=== PATIENT | female | born 1950 ===

== ENCOUNTER 2022-05-25 11:26 | Emergency (ER) | payer MEDICARE ==
[2022-05-25] MEDS ORDERED: SODIUM CHLORIDE 0.9% 1000 ML 1,000 ML IV ONE ×2 (13:02)
[2022-05-25] MEDS ORDERED: ACETAMINOPHEN 500 MG TAB PO ONE ×2 (13:02)
--- NOTE | 2022-05-25 13:35 | XRay Report ---
CHEST 1 VIEW 05/25/2022 1:08 PM INDICATION / CLINICAL INFORMATION: fever cough. COMPARISON: None available. FINDINGS: SUPPORT DEVICES: None. HEART / MEDIASTINUM: No significant abnormality. LUNGS / PLEURA: No significant pulmonary or pleural abnormality. No pneumothorax. ADDITIONAL FINDINGS: No significant additional findings. IMPRESSION: 1. No acute findings. Signer Name: Ady Argueta MD Signed: 05/25/2022 1:31 PM Workstation Name: [id number]
--- NOTE | 2022-05-25 13:56 | Emergency Department Report ---
HPI - General Chief Complaint: Weakness PUI?: Yes Time Seen by Provider: 05/25/22 12:58 - HPI HPI: 71-year-old female, sent from [facility], [facility], with documented history of anemia, diabetes, hypertension, schizophrenia, dementia, tachycardia, CVA, documented "slowness and poor responsiveness", sent in from [facility] for frequent follow-up falls and fever. ED Past Medical Hx - Past Medical History Hx Hypertension: Yes Hx Diabetes: Yes Hx Psychiatric Treatment: Yes (schizophrenia) Additional medical history: anemia - Medications Home Medications: Home Medications Medication Instructions Recorded Confirmed Last Taken Type Amoxicillin/K Clav Tab [Augmentin 1 tab PO Q12HR 7 Days #12 tab 05/25/22 Unknown Rx 875 mg] ED Review of Systems ROS: Stated complaint: FEVER/ WEAKNESS Other details as noted in HPI Physical Exam - Physical Exam Vital Signs: Vital Signs 05/25/22 11:33 Temperature 101.3 F H Pulse Rate 98 H Respiratory 18 Rate Blood Pressure 146/84 [Left] O2 Sat by Pulse 99 Oximetry ED Course Vital Signs 05/25/22 11:33 Temperature 101.3 F H Pulse Rate 98 H Respiratory 18 Rate Blood Pressure 146/84 [Left] O2 Sat by Pulse 99 Oximetry - Consultations Consultation #1: 05/25/22 19:23 Return call received from Dr. Varela, elocution teacher general surgeon . Case reviewed with her. Per her verbal report, the pt is stable for discharge back to her detention facility. In the setting of the pt lacking RUQ pain, elevated wbc, and transaminitis, acute cholecystitis is unlikely. She advises that the pt be placed on oral abx prophylactically upon discharge back to her detention facility. She is to return if she develops any concerning symptoms. 06/05/22 06:15 ED Medical Decision Making - Lab Data Result diagrams: 05/25/22 14:11 05/25/22 14:11 - EKG Data -: EKG Interpreted by Me EKG shows normal: sinus rhythm Rate: normal - EKG Data When compared to previous EKG there are: no significant change - Radiology Data Radiology results: report reviewed - Medical Decision Making 71yo F w/ multiple medical comorbidities, sent from detention facility for frequent falls. Patient found to be COVID-positive here. Serum labs and diagnostic imaging reviewed. Patient made hemodynamically stable and neurovascular intact. Patient stable for discharge back to detention facility. Critical Care Time: No Critical care attestation.: If time is entered above; I have spent that time in minutes in the direct care of this critically ill patient, excluding procedure time. ED Disposition Clinical Impression: COVID-19 virus infection, Fever, Constipation, Gallstones Disposition: 03 INTERMEDIATE FACILITY Is pt being admited?: No Does the pt Need Aspirin: No Condition: Stable Instructions: COVID-19 Frequently Asked Questions, Cholelithiasis, COVID-19, Constipation, Adult, [id number], COVID-19: How to Protect Yourself and Others - [facility] Additional Instructions: You tested positive for covid infection today. This is believed to be the cause of your fever. Your cat scan shows that you are constipated, and that you have stones in your gallbladder. To help prevent a developing gallbladder infection, you are being placed on antibiotics. Take augmentin 875mg by mouth every 12 hours for 7 days. Complete your entire prescription. Please self-quarantine per CDC guidelines. Wear a mask at all times. Observe your symptoms very carefully. Return to the nearest emergency department soon as possible if you develop vomiting, nausea, persistent fevers not responding to Tylenol, weakness, or if any other new worrisome symptoms develop Prescriptions: Amoxicillin/K Clav Tab [Augmentin 875 mg] 1 tab PO Q12HR 7 Days #12 tab Referrals: GRISELDA PARADA MD [Primary Care Provider] - 3-5 Days
[2022-05-25 14:31] LABS: Basophils # (Auto) 0.1 K/mm3 (0.0-0.1); Basophils % (Auto) 1.8 % (0.0-1.8); Eosinophils % (Auto) 0.3 % (0.0-4.3); Hemoglobin 11.4 gm/dl (10.1-14.3); Lymphocytes # (Auto) 0.5 K/mm3 (1.2-5.4); Lymphocytes % (Auto) 7.9 % (13.4-35.0); Mean Corpuscular HGB Conc 34 % (30-34); Mean Corpuscular Volume 85 fl (79-97); Monocytes % (Auto) 15.7 % (0.0-7.3); Platelet Count 162 K/mm3 (140-440); Red Blood Count 4.01 M/mm3 (3.65-5.03)
[2022-05-25 14:47] LABS: Alanine Aminotransferase 25 units/L (7-56); Albumin 4.5 g/dL (3.9-5); BUN/Creatinine Ratio 16; Blood Urea Nitrogen 11 mg/dL (7-17); Calcium 9.3 mg/dL (8.4-10.2); Hemolysis Index 5
[2022-05-25 16:01] LABS: Bacteria,Urine 1+ /HPF (Negative); WBC,Urine < 1.0 /HPF (0.0-6.0)
--- NOTE | 2022-05-25 16:27 | Cat Scan Report ---
CT ABDOMEN AND PELVIS WITH CONTRAST HISTORY: fever, mid abdominal pain. COMPARISON: None. TECHNIQUE: CT images of the abdomen and pelvis were obtained following administration of intravenous contrast. All CT scans at this location are performed using CT dose reduction for ALARA by means of automated exposure control. CONTRAST: 100 ml of intravenous contrast administered. FINDINGS: Lungs/bones: Mild lower lobe atelectasis Abdomen/pelvis: There is intra and extra hepatic biliary ductal dilatation. Fatty infiltration of th e liver is identified. Adrenal glands, pancreas appear normal. Gallbladder is contracted. Possible ga llstones are seen. Spleen appears normal. Multiple left renal cyst. Pancreas appears normal. Mild thi ckening of the distal stomach wall however there is incomplete distention. Constipation seen througho ut the colon there are a few sigmoid and left colonic diverticula. There may be uterine fibroids. IMPRESSION: 1. Mild lower lobe atelectasis 2. Mild intra and extra hepatic biliary ductal dilatation. Gallbladder appears contracted with possib le gallstones. Hepatic steatosis. 3. Left renal cyst. 4. Constipation. 5. Possible uterine fibroids. There is 6. Mildly prominent inguinal nodes however no dominant adenopa thy. 6. Questionable mild thickening of the stomach wall however there is incomplete distention. Clinical correlation. No fluid collections in the abdomen or pelvis. Signer Name: Ady Argueta MD Signed: 05/25/2022 4:23 PM Workstation Name: [id number]
[2022-05-25 16:34] LABS: Color,Urine Yellow (Yellow)
--- NOTE | 2022-05-25 17:40 | Ultrasound Report ---
Limited abdominal ultrasound INDICATION: Right upper quadrant pain FINDINGS: Multiple gallstones. No pericholecystic fluid. Gallbladder wall is thickened measuring 6 mm . Liver appears normal. Visualized aorta appears normal. Visualized pancreas appears normal. IMPRESSION: Cholelithiasis with gallbladder wall thickening. Common bile duct measures 7 mm. No pericholecystic f luid. Signer Name: Ady Argueta MD Signed: 05/25/2022 5:36 PM Workstation Name: [id number]
[2022-05-25] MEDS ORDERED: AMOXICILLIN/K CLAV 875/125MG TAB PO ONE (19:51)
[2022-05-25 20:01] VITALS: BP 128/82
== END 2022-05-25 22:39 ==
LOC: ED 11:26
DX: U07.1 COVID-19 (principal); R50.9 Fever, unspecified; K59.00 Constipation, unspecified; I10 Essential (primary) hypertension; E11.9 Type 2 diabetes mellitus without complications; F20.9 Schizophrenia, unspecified
CPT/HCPCS: 36415; 71045; 74177; 76705; 80053; 81001; 82140; 82962; 85025; 87040; 96360; 96361; 99285; J7030; Q9967; U0003; 96375; 99284